=== PATIENT | female | born 1980 | race Caucasian/White ===

== ENCOUNTER 2016-12-10 12:24 | Outpatient (CLI) | payer OTHER ==
[~2016-12-10 12:24] MED LIST: CLARITIN10 M1 PO; CORRECTOL100 MG PO; EXCEDRIN EXTRA STREN PO; FLONASE AL50 MCG/ACT; IBUPROFEN200 M1 PO; LANSINOH0.25 GM TOP; PRENATAL VITAMINS PO; PROTONIX40 MG PO; ZANTAC 150 MAX150 MG PO
--- NOTE | 2016-12-10 13:01 | DIAGNOSTIC IMAGING REPORT ---
PROCEDURE: XR KNEE 3 VIEWS - RIGHT INDICATION: RIGHT KNEE PX TECHNIQUE: Three views. COMPARISON: None. FINDINGS: Osseous structures and joint spaces are normal. IMPRESSION: 1. Normal right knee.
== END 2016-12-10 23:00 ==
LOC: XR SRH 12:24
DX: M25.561 Pain in right knee (principal)